=== PATIENT | female | born 1965 | race Two or more races ===

== ENCOUNTER 2017-06-12 14:58 | Emergency (ER) | payer MEDICAID, OTHER ==
[~2017-06-12] VITALS: Ht 144.8 cm; Wt 61.2 kg
[~2017-06-12 14:58] MED LIST: LEVO50TA7
[2017-06-12 16:49] LABS: Eosinophils # (auto) 0.2 uL; Hematocrit 23.1 % (36.0-46.0); Monocytes # (auto) 0.4 uL; Monocytes % (auto) 4.9 % (0.0-12.0)
[2017-06-12 16:51] LABS: Basophils # (auto) 0 uL; Basophils % (auto) 0.6 % (0.0-2.0); Eosinophils % (auto) 2.8 % (0.0-7.0); Lymphocytes % (auto) 24.6 % (10.0-50.0); Mean Corpuscular Hemoglobin 17.3 pg (28.0-32.0); Mean Corpuscular Hgb Conc. 29.2 g/dL (32.0-36.0); Mean Corpuscular Volume 59.2 fL (80.0-100.0); Neutrophils # (auto) 5.4 uL; Neutrophils % (auto) 67.1 % (37.0-80.0); Nucleated Red Blood Cells % 0.2 %; Platelet Count (auto) 567 10^3/uL (140-450); White Blood Cell 8.1 10^3/uL (4.4-10.8)
[2017-06-12 17:02] LABS: Hemoglobin 6.8 g/dL (12.2-16.2)
[2017-06-12 17:13] LABS: Albumin 3.6 g/dL (3.4-5.0); BUN/Creatinine Ratio 11.7; Calcium 8.8 mg/dL (8.5-10.1)
[2017-06-12 17:15] LABS: Bilirubin, Total 0.3 mg/dL (0.2-1.0); Total Protein 8.5 g/dL (6.4-8.2)
[2017-06-12 22:05] VITALS: BP 110/65
[2017-06-12 22:20] VITALS: BP 118/69
[2017-06-12 22:35] VITALS: BP 127/67
[2017-06-12] MEDS ORDERED: HYDROmorphone HCL 2 MG/ML VL IV ONE (22:45)
[2017-06-12] MEDS ORDERED: ONDANSETRON HCL 4 MG/2 ML VIAL IV ONE (22:45)
[2017-06-12 22:50] VITALS: BP 140/56
[2017-06-12] MEDS ORDERED: LORazepam 2MG/ML-1ML VIAL IV ONE (23:45)
[2017-06-13 01:00] VITALS: BP 92/51
[2017-06-13 01:05] VITALS: BP 91/49
[2017-06-13 01:20] VITALS: BP 100/52
[2017-06-13 03:03] VITALS: BP 101/60
== END 2017-06-13 03:45 | disposition home or self-care (01) ==
LOC: ER 14:58
DX: D64.9 Anemia, unspecified (principal); R53.1 Weakness; M54.9 Dorsalgia, unspecified; Z79.899 Other long term (current) drug therapy
CPT/HCPCS: 36415; 36430; 80053; 82962; 85025; 86850; 86900; 86901; 86920; 93005; 96374; 96375; 99285; J1170; J2405; J7040; J7060; P9016

== ENCOUNTER 2018-11-30 12:06 | Inpatient (IN) | payer OTHER, MEDICAID ==
[~2018-11-30] VITALS: Ht 144.8 cm; Wt 66.7 kg
[2018-11-30 15:10] LABS: Basophils # (auto) 0.1 uL; Eosinophils # (auto) 0.2 uL; Hemoglobin 7.7 g/dL (12.2-16.2); Monocytes # (auto) 0.4 uL; Neutrophils # (auto) 3.3 uL; White Blood Cell 5.6 10^3/uL (4.4-10.8)
[2018-11-30 15:15] LABS: INR 0.92 (0.9-1.15); Partial Thromboplastin Time 22.9 sec (23.78-33.04); Prothrombin Time 9.9 sec (9.27-12.13)
[2018-11-30 15:19] LABS: Basophils % (auto) 0.9 % (0.0-2.0); Eosinophils % (auto) 3.2 % (0.0-7.0); Lymphocytes % (auto) 30.7 % (10.0-50.0); Monocytes % (auto) 6.3 % (0.0-12.0); Neutrophils % (auto) 58.9 % (37.0-80.0)
[2018-11-30 15:20] LABS: Lymphocytes # (auto) 1.7 uL; Mean Corpuscular Hemoglobin 18.7 pg (28.0-32.0); Mean Corpuscular Hgb Conc. 29.5 g/dL (32.0-36.0); Mean Corpuscular Volume 63.6 fL (80.0-100.0); Platelet Count (auto) 529 10^3/uL (140-450); Red Blood Cells 4.09 10^6/uL (4.0-5.20); Red Cell Distribution Width 19.5 % (11.8-14.3)
[2018-11-30 15:21] LABS: Albumin 4.1 g/dL (3.4-5.0); Potassium 3.9 mmol/L (3.5-5.1)
[2018-11-30 15:24] LABS: BUN/Creatinine Ratio 17.6; Bilirubin, Total 0.3 mg/dL (0.2-1.0); Total Protein 8.5 g/dL (6.4-8.2)
[2018-11-30] MEDS ORDERED: traMADol HCL 50 MG TAB PO PRN (16:00)
[2018-11-30] MEDS ORDERED: NITROGLYCERIN 0.4 MG SL TAB SL PRN (16:00)
[2018-11-30] MEDS ORDERED: ACETAMINOPHEN 500 MG TAB PO PRN (16:00)
[2018-11-30] MEDS ORDERED: PROMETHAZINE HCL 25 MG/ML 1ML IV PRN (16:00)
[2018-11-30] MEDS ORDERED: MORPHINE SULF INJ 2 MG/ML SYRINGE 1ML IV PRN (16:00)
[2018-11-30] MEDS: SODIUM CHLORIDE 0.9% 1,000 ML IV SCH (16:42)
[2018-11-30 18:33] LABS: Hematocrit 23.7 % (36.0-46.0)
[2018-11-30 18:48] LABS: Hemoglobin 6.9 g/dL (12.2-16.2)
[2018-11-30 19:24] LABS: Urine Bacteria MANY /hpf (None Seen); Urine Blood Negative /uL (Negative); Urine Mucus FEW (None Seen); Urine Specific Gravity 1.022 (1.001-1.035); Urine WBC 3 /hpf (0 - 5)
[2018-11-30 19:33] LABS: % Iron Saturation 1.5 % (15-50)
[2018-11-30 21:00] VITALS: BP 122/66
[2018-11-30 21:15] VITALS: BP 122/61
[2018-11-30 21:30] VITALS: BP 116/63
[2018-11-30 22:00] VITALS: BP 125/64
[2018-11-30] MEDS: PANTOPRAZOLE 40 MG TAB PO SCH (22:05)
[2018-11-30 23:00] VITALS: BP 133/65
[2018-12-01] VITALS: BP 133/64
[2018-12-01 00:15] VITALS: BP 125/69
[2018-12-01] MEDS: SODIUM CHLORIDE 0.9% 1,000 ML IV SCH ×2 (00:28→10:12)
[2018-12-01 01:47] LABS: Hematocrit 25.8 % (36.0-46.0)
--- NOTE | 2018-12-01 02:38 | NUR ---
OPENING NOTES RECEIVED PATIENT ED FROM DAYSHIFT NURSE. PT IS A/OX4. PT SHOWS NO S/S OF DISTRESS AT THIS MOMENT NOR PAIN. NO SOB AT THIS MOMENT. BED IS IN LOWEST POSITION WITH SIDE RAILS UP X 2. BED BRAKES ARE LOCKED AND CALL LIGHT IS WITH IN REACH. HOB IS 30 DEGREES. WILL CONTINUE TO MONITOR Q 1 HR.
[2018-12-01] MEDS ORDERED: METF-371 PO (03:53)
[2018-12-01] MEDS ORDERED: CHOL20007 OR (03:53)
[2018-12-01] MEDS ORDERED: FERR1TAB36 PO (03:53)
[2018-12-01 07:07] LABS: Hemoglobin 7.9 g/dL (12.2-16.2)
[2018-12-01 07:08] LABS: Hematocrit 26.2 % (36.0-46.0)
--- NOTE | 2018-12-01 07:25 | NUR ---
ENDORSED CARE TO DEMARCO [facility], [place].
--- NOTE | 2018-12-01 07:31 | NUR ---
Opening Note Received report from night custodian RN. Patient is awake, alert and oriented x4. No signs or symptoms of distress noted at this time. Patient denies pain at this time. Reviewed plan of care with patient, patient verbalized understanding. Family at bedside. Bed in low and locked position, call light within reach. Will continue to monitor Q1 hour and PRN.
[2018-12-01 09:00] VITALS: BP 114/65
--- NOTE | 2018-12-01 09:10 | NUR ---
Patient ambulated to restroom, gait steady.
[2018-12-01] MEDS: PANTOPRAZOLE 40 MG TAB PO SCH ×2 (10:11→21:30)
[2018-12-01 10:52] LABS: Ferritin 5.3 ng/mL (10-322)
[2018-12-01 10:53] LABS: Folate (Folic Acid) 17.82 ng/mL (5.38-24)
[2018-12-01] MEDS ORDERED: LEVOTHYROXINE SODIUM 25 MCG TAB PO ONE (11:30)
[2018-12-01] MEDS: InsuLIN REG 1unit/0.01ml Soln (100units/ml) SC SCH ×3 (11:30→21:30)
[2018-12-01] MEDS ORDERED: DEXTROSE (50%) 50ML SYRG IV PRN (11:30)
[2018-12-01] MEDS: ACCU-CHEK COMFORT CURVE STRIP VI SCH ×3 (12:16→21:30)
[2018-12-01] MEDS: SODIUM FERR GLUC 62.5MG/5ML 125 MG in SODIUM CHL 0.9% 100 ML IV SCH (12:55)
[2018-12-01 13:00] VITALS: BP 110/67
[2018-12-01 17:00] VITALS: BP 127/70
--- NOTE | 2018-12-01 19:28 | NUR ---
Stool sample collected and sent to lab
--- NOTE | 2018-12-01 19:33 | NUR ---
Closing Note Report given to hotel night auditor RN. No signs or symptoms of distress noted at this time.
[2018-12-01] MEDS: LORazepam 0.5 MG TAB PO PRN (21:29)
[2018-12-01 22:00] VITALS: BP 145/68
[2018-12-02 05:00] VITALS: BP 97/56
[2018-12-02] MEDS: InsuLIN REG 1unit/0.01ml Soln (100units/ml) SC SCH ×4 (05:48→21:48)
[2018-12-02] MEDS: ACCU-CHEK COMFORT CURVE STRIP VI SCH ×4 (05:49→21:48)
[2018-12-02] MEDS ORDERED: LEVOTHYROXINE SODIUM 25 MCG TAB PO SCH (07:00)
--- NOTE | 2018-12-02 07:04 | NUR ---
Opening Note Received report from shift foreman RN. Patient is resting in bed with eyes closed, easy to wake by calling name. Patient is on room air, respirations even and unlabored. Patient denies pain at this time. Reviewed plan of care with patient, patient verbalized understanding. Bed in low and locked position, call light within reach. Will continue to monitor Q1 hour and PRN.
[2018-12-02 08:06] LABS: Basophils # (auto) 0.1 uL; Basophils % (auto) 1.5 % (0.0-2.0); Eosinophils # (auto) 0.2 uL; Hemoglobin 7.8 g/dL (12.2-16.2); Lymphocytes # (auto) 1.3 uL; Neutrophils # (auto) 2.4 uL; Nucleated Red Blood Cells % 0.1 %; White Blood Cell 4.3 10^3/uL (4.4-10.8)
[2018-12-02 08:08] LABS: Hematocrit 26.2 % (36.0-46.0); Lymphocytes % (auto) 29.4 % (10.0-50.0); Mean Corpuscular Hemoglobin 19.5 pg (28.0-32.0); Mean Corpuscular Hgb Conc. 29.8 g/dL (32.0-36.0); Mean Corpuscular Volume 65.4 fL (80.0-100.0); Monocytes # (auto) 0.4 uL; Monocytes % (auto) 8.6 % (0.0-12.0); Neutrophils % (auto) 55.5 % (37.0-80.0); Platelet Count (auto) 428 10^3/uL (140-450); Red Blood Cells 4.01 10^6/uL (4.0-5.20)
[2018-12-02 08:11] LABS: Red Cell Distribution Width 21.1 % (11.8-14.3)
[2018-12-02 08:59] VITALS: BP 93/49
[2018-12-02] MEDS: PANTOPRAZOLE 40 MG TAB PO SCH ×2 (09:27→21:35)
[2018-12-02] MEDS: SODIUM FERR GLUC 62.5MG/5ML 125 MG in SODIUM CHL 0.9% 100 ML IV SCH (11:54)
--- NOTE | 2018-12-02 11:57 | NUR ---
I spoke with Dr. Hutchins regarding the plan of care this patient-reminded him that patient is a [employer] patient and that we are not a contracted facility-if she is not going to be discharged in a day or 2 they would like her transferred to a contracted facility-he will re-assess patient tomorrow for possible discharge home.
[2018-12-02 13:12] VITALS: BP 106/53
[2018-12-02 13:39] LABS: Free T4 (Free Thyroxine) 0.82 ng/dL (0.89-1.76)
[2018-12-02 13:44] LABS: Free T3 2.62 pg/mL (2.3-4.2)
--- NOTE | 2018-12-02 15:05 | NUR ---
Medical records Patients family is to bring in medical records from prior GI visit at another facility, per Dr. Boothe request.
[2018-12-02 16:53] VITALS: BP 129/70
--- NOTE | 2018-12-02 18:48 | NUR ---
Medical records brought in by family, placed in front of patients chart. Patient requesting to have them returned to her upon discharge
--- NOTE | 2018-12-02 19:10 | NUR ---
Closing Note Report given to feed inspection supervisor RN. No signs or symptoms of distress noted at this time.
--- NOTE | 2018-12-02 19:30 | NUR ---
Opening Shift Note Assumed care of patient, awake and alert. No S/S of distress/SOB or pain. Instructed on POC and to call for assistance PRN, will continue to monitor for changes Q1hr and PRN, wrapped patient iv, pt to take shower, at bedside.
[2018-12-02 20:00] VITALS: BP 105/64
[2018-12-02 22:00] VITALS: BP 105/64
[2018-12-03 05:17] VITALS: BP 115/60
[2018-12-03] MEDS: ACCU-CHEK COMFORT CURVE STRIP VI SCH ×4 (06:29→22:15)
[2018-12-03] MEDS: InsuLIN REG 1unit/0.01ml Soln (100units/ml) SC SCH ×4 (06:29→22:00)
[2018-12-03 07:41] LABS: Basophils % (auto) 0.9 % (0.0-2.0); Hemoglobin 8.2 g/dL (12.2-16.2); Mean Corpuscular Hemoglobin 19.7 pg (28.0-32.0); Monocytes # (auto) 0.4 uL; Red Blood Cells 4.18 10^6/uL (4.0-5.20)
[2018-12-03 07:45] LABS: Basophils # (auto) 0 uL; Eosinophils # (auto) 0.3 uL; Eosinophils % (auto) 4.5 % (0.0-7.0); Hematocrit 27.4 % (36.0-46.0); Lymphocytes # (auto) 1.1 uL; Lymphocytes % (auto) 20.3 % (10.0-50.0); Mean Corpuscular Hgb Conc. 30.1 g/dL (32.0-36.0); Mean Corpuscular Volume 65.6 fL (80.0-100.0); Monocytes % (auto) 7.2 % (0.0-12.0); Neutrophils # (auto) 3.7 uL; Neutrophils % (auto) 67.1 % (37.0-80.0); Platelet Count (auto) 446 10^3/uL (140-450); White Blood Cell 5.5 10^3/uL (4.4-10.8)
[2018-12-03 07:50] LABS: Red Cell Distribution Width 21.3 % (11.8-14.3)
--- NOTE | 2018-12-03 08:00 | NUR ---
OPENING NOTE OBSERVED PT RESTING IN BED. NO SOB/DISTRESS NOTED. PT DENIES ANY PAIN AT THIS TIME. PT UPDATED ON POC AND VERBALIZED UNDERSTANDING. CALL LIGHT WITHIN REACH. FALL PRECAUTIONS IN PLACE. WILL CONTINUE TO MONITOR Q1H AND PRN. CONTINUE PT CARE.
[2018-12-03 09:04] VITALS: BP 115/62
[2018-12-03] MEDS: PANTOPRAZOLE 40 MG TAB PO SCH ×2 (09:23→22:15)
--- NOTE | 2018-12-03 10:48 | NUR ---
MEDICAL RECORDS CONTACTED OUTSIDE [facility] TO OBTAIN MEDICAL RECORD/OPERATIVE RECORD REPORT. NUMBER PROVIDED TO CONTACT [facility]OR[facility]. CONTACTED MEDICAL RECORDS. FAX/REQUEST FORM SENT FORM FOR OPERATIVE RECORD TO [phone].
--- NOTE | 2018-12-03 10:57 | NUR ---
AT BEDSIDE DR. LEE AT BEDSIDE DISCUSSING EGD/COLONOSCOPY. PT/FAMILY AT BEDSIDE VERBALIZED UNDERSTANDING.
[2018-12-03] MEDS ORDERED: GOLYTELY 4L KIT PO ONE (11:15)
--- NOTE | 2018-12-03 12:04 | NUR ---
COLONOSCOPY/EGD COLONOSCOPY/EGD REPORTS RECEIVED FROM [facility]. REPORTS PLACED IN CHART. CALLED DR. LEE TO INFORM OF BOTH PROCEDURAL REPORTS. MD AWARE. PROCEEDING WITH EGD/COLONOSCOPY.
--- NOTE | 2018-12-03 12:15 | NUR ---
PROCEDURAL CONSENTS PT EXPRESSED HAVING NO FURTHER QUESTION IN REGARDS TO PLANNED EGD/COLONOSCOPY. CONSENTS SIGNED AND PLACED IN CHART.
[2018-12-03] MEDS: SODIUM FERR GLUC 62.5MG/5ML 125 MG in SODIUM CHL 0.9% 100 ML IV SCH (12:20)
[2018-12-03 13:07] VITALS: BP 106/59
--- NOTE | 2018-12-03 14:35 | NUR ---
IV insertion IV access obtained, via clean sterile technique by inserting 22 gauge catheter at after 2 attempt(s). IV secured properly. No trauma to site. Patient tolerated well. NOTE: Pt c/o discomfort at RH IV site. IV removed, catheter intact, pressure dressing applied.
[2018-12-03 16:45] VITALS: BP 143/62
--- NOTE | 2018-12-03 19:35 | NUR ---
Opening Shift Note Assumed care of patient, awake and alert x4. No S/S of distress/SOB or pain. Patient has been drinking go lytely, almost finished with 2/3. Instructed on POC and to call for assistance PRN, will continue to monitor for changes Q1hr and PRN. Family at bedside
[2018-12-03 20:00] VITALS: BP 122/69
[2018-12-03 21:00] VITALS: BP 122/69
[2018-12-03] MEDS: LORazepam 0.5 MG TAB PO PRN (22:15)
[2018-12-04 05:00] VITALS: BP 112/62
--- NOTE | 2018-12-04 05:15 | NUR ---
Rounds Patient sleeping, respirations even and unlabored. No S/S of distress/SOB or pain. Will continue to monitor changes q1hr and PRN. Call light within reach, bed in lowest locked position
--- NOTE | 2018-12-04 05:26 | NUR ---
Rounds Patient awake and alert x4. No S/S of distress/SOB or pain. Pt medicated for anxiety. Will continue to monitor changes q1hr and PRN.
[2018-12-04] MEDS ORDERED: GOLYTELY 4L KIT PO ONE (06:00)
--- NOTE | 2018-12-04 07:05 | NUR ---
PT AWAKE, ALERT, AMBULATING FROM RESTROOM. DENIES DISCOMFORT. EFFORTLESS BREATHING ON ROOM AIR. IV PRESENT TO LEFT HAND #[id number]. PT REPORTS STOOL IS YELLOW CLEAR WATERY. BED IN LOWEST POSITION, CALL LIGHT WITHIN REACH.
[2018-12-04] MEDS ORDERED: SODIUM CHLORIDE LOCK 10 ML ONE (08:32)
[2018-12-04] MEDS ORDERED: diphenhdrAMINE HCL 50 MG/1 ML VL ONE (08:33)
[2018-12-04 09:00] VITALS: BP 114/63
--- NOTE | 2018-12-04 09:40 | NUR ---
PT TAKEN TO GI LAB, PRE-OP AT THIS TIME. NO DISTRESS NOTED. EFFORTLESS BREATHING ON ROOM AIR. REPORT GIVEN TO KENO DEALER.
[2018-12-04] MEDS: MIDAZOLAM HCL 5 MG/ML-1ML VIAL ONE ×3 (09:54→10:03)
[2018-12-04] MEDS: fentaNYL CITRATE 100 MCG/2 ML VL ONE ×3 (09:54→10:03)
[2018-12-04] MEDS ORDERED: LIDOCAINE VISCOUS 2% 15ML UD ONE (09:58)
--- NOTE | 2018-12-04 10:54 | NUR ---
PT BACK FROM GI LAB. DENIES ANY PAIN, PT APPEARS DROWSY, RESPONDS TO COMMANDS UPON VERBAL STIMULI. EFFORTLESS BREATHING ON ROOM AIR. V/S: 97.7; 66; 15; 91/43 (67); 98% ROOM AIR. BED IN LOWEST POSITION, CALL LIGHT WITHIN REACH. AT BEDSIDE.
[2018-12-04] MEDS: InsuLIN REG 1unit/0.01ml Soln (100units/ml) SC SCH (11:30)
[2018-12-04] MEDS: SODIUM FERR GLUC 62.5MG/5ML 125 MG in SODIUM CHL 0.9% 100 ML IV SCH (11:50)
[2018-12-04] MEDS: PANTOPRAZOLE 40 MG TAB PO SCH (11:51)
[2018-12-04] MEDS: ACCU-CHEK COMFORT CURVE STRIP VI SCH (11:51)
[2018-12-04 13:00] VITALS: BP 118/68
--- NOTE | 2018-12-04 13:35 | NUR ---
PT AWAKE, ALERT, ORIENTED. DENIES DISCOMFORT AT MOMENT. EFFORTLESS BREATHING ON ROOM AIR. CALL LIGHT WITHIN REACH.
[2018-12-04 15:38] VITALS: BP 118/68
--- NOTE | 2018-12-04 17:33 | NUR ---
DISCHARGE INSTRUCTIONS GIVEN TO PT. PT VERBALIZED UNDERSTANDING FOR PRESCRIPTION ORDERS AND FOLLOW UP APPOINTMENT WITH DR. POWER AND DR. CHAU. IV CATHETER DC'D CATHETER INTACT. PT SAFELY ESCORTED OUT OF UNIT. NO DISTRESS NOTED.
== END 2018-12-04 18:21 | disposition home or self-care (01) | DRG 392 ==
LOC: ER 12:06 → TELE 15:48 → TELE-CENTR 12-01 02:11 → CENTRAL 12-01 17:12
PROVIDERS: ADMIT Internal Medicine; ATTEND Internal Medicine
PROC: 30233N1 Transfusion of Nonautologous Red Blood Cells into Peripheral Vein, Percutaneous Approach (ICD-10-PCS; 2018-11-30)
PROC: 0DB68ZX Excision of Stomach, Via Natural or Artificial Opening Endoscopic, Diagnostic (ICD-10-PCS; principal; 2018-12-04 09:52)
PROC: 0DJD8ZZ Inspection of Lower Intestinal Tract, Via Natural or Artificial Opening Endoscopic (ICD-10-PCS; 2018-12-04 09:52)
DX: K29.70 Gastritis, unspecified, without bleeding (principal); E66.9 Obesity, unspecified; E03.9 Hypothyroidism, unspecified; Z68.31 Body mass index [BMI] 31.0-31.9, adult; R26.2 Difficulty in walking, not elsewhere classified; E11.65 Type 2 diabetes mellitus with hyperglycemia; D50.9 Iron deficiency anemia, unspecified; K64.8 Other hemorrhoids; Z80.0 Family history of malignant neoplasm of digestive organs; Z80.1 Family history of malignant neoplasm of trachea, bronchus and lung; Z80.3 Family history of malignant neoplasm of breast; Z80.41 Family history of malignant neoplasm of ovary; Z80.8 Family history of malignant neoplasm of other organs or systems; Z81.8 Family history of other mental and behavioral disorders; Z82.0 Family history of epilepsy and other diseases of the nervous system; Z82.3 Family history of stroke; Z82.49 Family history of ischemic heart disease and other diseases of the circulatory system; Z82.62 Family history of osteoporosis; Z82.5 Family history of asthma and other chronic lower respiratory diseases; Z83.3 Family history of diabetes mellitus; Z98.891 History of uterine scar from previous surgery
CPT/HCPCS: 36415; 36430; 71045; 80053; 81001; 82270; 82378; 82607; 82728; 82746; 82962; 83036; 83540; 83550; 83735; 84439; 84443; 84481; 84702; 85014; 85018; 85025; 85045; 85610; 85652; 85730; 86141; 86850; 86900; 86901; 86920; 94761; G0378; J1815; J2250

== ENCOUNTER 2019-11-30 10:25 | Inpatient (IN) | payer MEDICAID, OTHER ==
[~2019-11-30] VITALS: Ht 144.8 cm; Wt 60.5 kg
[~2019-11-30 10:25] MED LIST changes: +CHOL20007 OR; +FERR1TAB36 PO; -LEVO50TA7; +METF-371 PO
[2019-11-30 11:33] LABS: Basophils # (auto) 0 10 ^3/uL (0-0.2); Basophils % (auto) 0.8 % (0.0-2.0); Eosinophils # (auto) 0.2 10 ^3/uL (0-0.8); Lymphocytes # (auto) 1.1 10 ^3/uL (0.4-5.4); Monocytes # (auto) 0.3 10 ^3/uL (0-1.3); Nucleated Red Blood Cells % 0.2 %
[2019-11-30 11:35] LABS: Eosinophils % (auto) 3.6 % (0.0-7.0); Hematocrit 23.5 % (36.0-46.0); Lymphocytes % (auto) 20.3 % (10.0-50.0); Mean Corpuscular Hemoglobin 20.1 pg (28.0-32.0); Mean Corpuscular Hgb Conc. 29.9 g/dL (32.0-36.0); Mean Corpuscular Volume 67.3 fL (80.0-100.0); Monocytes % (auto) 5.8 % (0.0-12.0); Neutrophils # (auto) 3.7 10 ^3/uL (1.6-8.6); Neutrophils % (auto) 69.5 % (37.0-80.0); Red Cell Distribution Width 17.8 % (11.8-14.3); White Blood Cell 5.3 10^3/uL (4.4-10.8)
[2019-11-30 11:40] LABS: Albumin 3.8 g/dL (3.4-5.0); Calcium 9.1 mg/dL (8.5-10.1); Potassium 3.9 mmol/L (3.5-5.1)
[2019-11-30 11:42] LABS: BUN/Creatinine Ratio 16.2; Bilirubin, Total 0.3 mg/dL (0.2-1.0); Total Protein 8.2 g/dL (6.4-8.2)
[2019-11-30 11:49] LABS: Partial Thromboplastin Time 22.5 sec (23.64-32.05)
[2019-11-30 12:35] LABS: Platelet Count (auto) 527 10^3/uL (140-450)
[2019-11-30 13:21] VITALS: BP 114/67
[2019-11-30 13:36] VITALS: BP 118/62
[2019-11-30] MEDS ORDERED: MORPHINE SULF INJ 2 MG/ML SYRINGE 1ML IV PRN ×2 (14:30→15:30)
[2019-11-30] MEDS ORDERED: NITROGLYCERIN 0.4 MG SL TAB SL PRN ×2 (14:30→15:30)
[2019-11-30] MEDS ORDERED: SODIUM CHLORIDE 0.9% 1,000 ML IV SCH (15:20)
[2019-11-30] MEDS ORDERED: DOCUSATE SOD 100 MG CAP PO PRN (15:30)
[2019-11-30] MEDS ORDERED: HYDROcodone-ACET 5/325MG TAB PO PRN (15:30)
[2019-11-30] MEDS ORDERED: METOCLOPRAMIDE HCL 5MG/ml INJ 2ml VIAL IV PRN (15:30)
[2019-11-30] MEDS ORDERED: LORazepam 0.5 MG TAB PO PRN (15:30)
[2019-11-30] MEDS ORDERED: MORPHINE SULFATE 4 MG/ML SYR/VIAL IV PRN (15:30)
[2019-11-30] MEDS ORDERED: ALUM & MAG HYDROX-SIMETH LIQ(MAALOX) 30 ML PO PRN (15:30)
[2019-11-30 16:02] LABS: Cholesterol 179 mg/dL (< 200); HDL Cholesterol 57 mg/dL (40-59); LDL Cholesterol 93 mg/dL (< 100); Triglycerides 143 mg/dL (< 150)
[2019-11-30] MEDS ORDERED: DEXTROSE (50%) 50ML SYRG IV PRN (17:00)
[2019-11-30] MEDS: InsuLIN REG 1unit/0.01ml Soln (100units/ml) SC SCH ×2 (17:00→22:00)
[2019-11-30] MEDS ORDERED: FERROUS SULFATE 300 MG/5 ML ORAL LIQ PO ONE (17:00)
[2019-11-30 17:08] VITALS: BP 114/63
[2019-11-30 17:29] VITALS: BP 114/63
[2019-11-30 17:36] VITALS: BP 114/63
[2019-11-30] MEDS: ACCU-CHEK COMFORT CURVE STRIP VI SCH (18:27)
[2019-11-30] MEDS: SODIUM CHLORIDE 0.9% 1,000 ML IV SCH (18:27)
[2019-11-30 22:00] VITALS: BP 121/55
[2019-12-01] VITALS (11 sets, daily range): BP systolic 102–120; BP diastolic 52–74
[2019-12-01] MEDS: ACCU-CHEK COMFORT CURVE STRIP VI SCH ×4 (00:27→17:12)
[2019-12-01] MEDS: SODIUM CHLORIDE 0.9% 1,000 ML IV SCH ×2 (00:32→12:45)
[2019-12-01 01:23] LABS: Alcohol, Urine < 3.0 mg/dL (0-5); Barbiturate Scree,Urine NEGATIVE (NEGATIVE); Benzodiazephine Screen, Urine NEGATIVE (NEGATIVE); Cannabinoid Screen, Urine NEGATIVE (NEGATIVE); Cocaine Screen, Urine NEGATIVE (NEGATIVE); Opiate Scree,Urine NEGATIVE (NEGATIVE); Phencyclidine Screen, Urine NEGATIVE (NEGATIVE)
[2019-12-01 01:27] LABS: Amphetamine Screen, Urine NEGATIVE (NEGATIVE)
[2019-12-01 05:46] LABS: Basophils # (auto) 0 10 ^3/uL (0-0.2); Eosinophils # (auto) 0.2 10 ^3/uL (0-0.8); Eosinophils % (auto) 5.1 % (0.0-7.0); Hematocrit 25.1 % (36.0-46.0); Hemoglobin 7.7 g/dL (12.2-16.2); Lymphocytes # (auto) 1.2 10 ^3/uL (0.4-5.4); Lymphocytes % (auto) 26.9 % (10.0-50.0); Mean Corpuscular Hemoglobin 21.8 pg (28.0-32.0); Mean Corpuscular Hgb Conc. 30.8 g/dL (32.0-36.0); Mean Corpuscular Volume 70.7 fL (80.0-100.0); Monocytes # (auto) 0.4 10 ^3/uL (0-1.3); Monocytes % (auto) 7.8 % (0.0-12.0); Neutrophils # (auto) 2.7 10 ^3/uL (1.6-8.6); Neutrophils % (auto) 59.2 % (37.0-80.0); Nucleated Red Blood Cells % 0.2 %; Platelet Count (auto) 444 10^3/uL (140-450); Red Blood Cells 3.55 10^6/uL (4.0-5.20); Red Cell Distribution Width 19.8 % (11.8-14.3); White Blood Cell 4.6 10^3/uL (4.4-10.8)
[2019-12-01 06:00] LABS: INR 1.02 (0.9-1.15); Partial Thromboplastin Time 24.5 sec (23.64-32.05)
[2019-12-01 06:07] LABS: Albumin 3.2 g/dL (3.4-5.0); Calcium 8.3 mg/dL (8.5-10.1); Magnesium 2.2 mg/dL (1.6-2.6); Potassium 3.8 mmol/L (3.5-5.1)
[2019-12-01 06:12] LABS: BUN/Creatinine Ratio 22.2; Bilirubin, Total 0.5 mg/dL (0.2-1.0); Phosphorus 4.1 mg/dL (2.5-4.90); Total Protein 6.9 g/dL (6.4-8.2)
[2019-12-01] MEDS: InsuLIN REG 1unit/0.01ml Soln (100units/ml) SC SCH ×3 (07:00→17:12)
[2019-12-01] MEDS: FERROUS SULFATE 300 MG/5 ML ORAL LIQ PO SCH ×3 (08:28→17:19)
== END 2019-12-01 21:03 | disposition home or self-care (01) | DRG 812 ==
LOC: ER 10:25 → TELE 10:26 → TELE-WESTW 16:56
PROVIDERS: ADMIT Hospitalist; ATTEND Internal Medicine
PROC: 30233N1 Transfusion of Nonautologous Red Blood Cells into Peripheral Vein, Percutaneous Approach (ICD-10-PCS; principal; 2019-11-30)
DX: D50.9 Iron deficiency anemia, unspecified (principal); E44.1 Mild protein-calorie malnutrition; E03.8 Other specified hypothyroidism; E11.9 Type 2 diabetes mellitus without complications; E66.9 Obesity, unspecified; D47.3 Essential (hemorrhagic) thrombocythemia; Z80.1 Family history of malignant neoplasm of trachea, bronchus and lung; Z80.3 Family history of malignant neoplasm of breast; Z80.41 Family history of malignant neoplasm of ovary; Z80.8 Family history of malignant neoplasm of other organs or systems; Z81.8 Family history of other mental and behavioral disorders; Z82.0 Family history of epilepsy and other diseases of the nervous system; Z82.3 Family history of stroke; Z82.49 Family history of ischemic heart disease and other diseases of the circulatory system; Z82.5 Family history of asthma and other chronic lower respiratory diseases; Z82.62 Family history of osteoporosis; Z83.3 Family history of diabetes mellitus; Z85.038 Personal history of other malignant neoplasm of large intestine; Z79.84 Long term (current) use of oral hypoglycemic drugs; Z68.28 Body mass index [BMI] 28.0-28.9, adult
CPT/HCPCS: 36415; 36430; 80053; 80061; 80307; 82962; 83036; 83735; 84100; 84484; 85025; 85610; 85730; 86850; 86900; 86901; 86920; 93306; 96360; G0378; J1815